=== PATIENT | female | born 1950 | race Caucasian/White ===

== ENCOUNTER 2017-01-11 07:19 | Emergency (ER) | payer SELFPAY ==
[2017-01-11] MEDS ORDERED: Sodium Chloride 0.9% 500 ML IV ONE (07:52)
[2017-01-11 07:56] VITALS: RESP 20; TEMP 97.9
[2017-01-11 08:06] LABS: BASO # 0.1 K/uL (0.0-0.2); BASO % 0.6 % (0.0-2.0); EOS # 0.2 K/uL (0.0-0.7); EOS % 1.3 % (0.0-4.0); HEMATOCRIT 39.1 % (34.0-47.0); LYMPH # 6.4 K/uL (1.0-4.3); LYMPH % 51.2 % (20.0-40.0); MEAN CELL VOLUME 84.6 fL (81.0-99.0); MEAN CORPUSCULAR HEMOGLOBIN 28.4 pg (27.0-31.0); MEAN CORPUSCULAR HGB CONC 33.5 g/dL (33.0-37.0); MEAN PLATELET VOLUME 9.9 fL (7.2-11.7); MONO % 7.7 % (0.0-10.0); RED CELL DISTRIBUTION WIDTH 12.9 % (11.5-14.5); WHITE BLOOD COUNT 12.5 K/uL (4.8-10.8)
[2017-01-11 08:12] LABS: CHLORIDE 95 mmol/L (98-107); POTASSIUM 4.2 mmol/L (3.6-5.2); SODIUM 137 mmol/L (132-148)
[2017-01-11 08:14] LABS: GFR AFRICAN-AMERICAN > 60
[2017-01-11 08:15] LABS: ALB/GLOB RATIO 1.3 (1.0-2.1); ALKALINE PHOSPHATASE 56 U/L (38-126); ALT/SGPT 21 U/L (9-52); AST/SGOT 21 U/L (14-36); BILIRUBIN,TOTAL 0.6 mg/dL (0.2-1.3); BLOOD UREA NITROGEN 20 mg/dL (7-17); CALCIUM 9.8 mg/dl (8.6-10.4); CARBON DIOXIDE 30 mmol/L (22-30); GLUCOSE,RANDOM 170 mg/dL (65-105); TOTAL PROTEIN 7.2 g/dL (6.3-8.3)
--- NOTE | 2017-01-11 08:15 | C.PDOC ---
History Of Present Illness 66-year-old female, presents to the emergency department, accompanied by daughter, complaining of diffuse cramps that started this morning- specifically right foot, right shoulder and left thigh. Patient has a Hx of muscle cramps, that vary in intensity. States cramps have improved at this time. Pt uses Gabapentin and Topical treatment with relief but this morning it did not help. Of note last night, patient reports BS was in 400s, she took additional insulin , today in 100s. No chest pain, fevers, shortness of breath, nausea/vomiting, trauma, or any other associated symptoms. No other complaints at this time. Time Seen by Provider: 01/11/17 07:33 Chief Complaint (Nursing): Lower Extremity Problem/Injury History Per: Patient, Family (daughter) History/Exam Limitations: no limitations Onset/Duration Of Symptoms: Days Current Symptoms Are (Timing): Better Severity: Moderate Past Medical History Reviewed: Historical Data, Nursing Documentation, Vital Signs Vital Signs: Last Vital Signs Temp 97.9 F 01/11/17 10:01 Pulse 77 01/11/17 10:01 Resp 20 01/11/17 10:01 BP 137/67 01/11/17 10:01 Pulse Ox 99 01/11/17 10:12 - Medical History PMH: HTN Family History: States: No Known Family Hx - Social History Hx Alcohol Use: No Hx Substance Use: No - Immunization History Hx Tetanus Toxoid Vaccination: No Hx Influenza Vaccination: No Review Of Systems Except As Marked, All Systems Reviewed And Found Negative. Constitutional: Positive for: Other (MUscle cramps.). Negative for: Fever, Chills Cardiovascular: Negative for: Chest Pain, Palpitations Gastrointestinal: Negative for: Nausea, Vomiting Neurological: Negative for: Weakness, Numbness, Headache, Dizziness Physical Exam - Physical Exam Appears: Non-toxic, No Acute Distress Skin: Warm, Dry, No Rash Head: Atraumatic, Normacephalic Eye(s): bilateral: Normal Inspection, EOMI Nose: Normal Oral Mucosa: Moist Lips: Normal Appearing Neck: Normal ROM, Supple Chest: Symmetrical Cardiovascular: Rhythm Regular, No Murmur Respiratory: Normal Breath Sounds, No Accessory Muscle Use Gastrointestinal/Abdominal: Soft, No Tenderness Extremity: Normal ROM, Tenderness, No Pedal Edema, No Calf Tenderness, Capillary Refill (< 2 sec), No Deformity, No Swelling, Other (Diffuse tenderness to lower extremities and right shoulder; no signs on decreased warmth or change in skin color) Extremity: Bilateral: Atraumatic, Normal Color And Temperature Pulses: Left Dorsalis Pedis: Normal, Right Dorsalis Pedis: Normal Neurological/Psych: Oriented x3, Normal Speech, Normal Sensation Gait: With Assistance ED Course And Treatment - Laboratory Results Result Diagrams: 01/11/17 08:01 01/11/17 08:01 ECG: Interpreted By Me (Dr Palafox), Viewed By Me ECG Rhythm: Sinus Rhythm Rate From EC O2 Sat by Pulse Oximetry: 99 - Radiology CXR: Interpreted by Me, Viewed By Me CXR Interpretation: Yes: No Acute Disease Progress Note: 07:52-. EKG, Bloodwork, Chest X-Ray and UA ordered and reviewed. Patient treated with Toradol and IVFs. Pt had one episode of leg cramps in ER, lasting about 2 minutes. valium ordered. . On re-evaluation patient is resting comfortably, and is in no acute distress. Imaging and blood work found to be negative; though all pathology has not been ruled out therefore admission was offered. Daughter and pt refuse admission noting this is pts baseleine and symptoms have improved. Pt has had leg cramps for many years with similar episode approx 8 yrs ago when she was [place] [facility] [place]. Patient was instructed to follow up with physician/clinic tomorrow for further evaluation and possible nerve/vascular studies. All questions were answered. Patient and daughter agreeable with plan. Case discussed with Dr Palafox, agreed upon plan and treatment. Disposition - Disposition Referrals: Kushal Patten MD [Medical Doctor] - Disposition: HOME/ ROUTINE Disposition Time: 10:08 Condition: STABLE Additional Instructions: Follow up with your doctor tomorrow. Return to ER if symptoms persist or worsen. Prescriptions: Metaxalone [Skelaxin] 800 mg PO BID #14 tablet Instructions: Muscle Strain (ED) - Clinical Impression Clinical Impression: Muscle cramps - Scribe Statement Johann Lamb All medical record entries made by the Scribe were at my direction and personally dictated by me. I have reviewed the chart and agree that the record accurately reflects my personal performance of the history, physical exam, medical decision making, and the department course for this patient. I have also personally directed, reviewed, and agree with the discharge instructions and disposition.
--- NOTE | 2017-01-11 09:29 | CT ---
PROCEDURE: CT HEAD WITHOUT CONTRAST. HISTORY: R/O Bleed COMPARISON: None available. TECHNIQUE: Axial computed tomography images were obtained through the head/brain without intravenous contrast. Radiation dose: Total exam DLP = 671.74 mGy-cm. This CT exam was performed using one or more of the following dose reduction techniques: Automated exposure control, adjustment of the mA and/or kV according to patient size, and/or use of iterative reconstruction technique. FINDINGS: HEMORRHAGE: No intracranial hemorrhage. BRAIN: Small chronic infarct right thalamus. Mild chronic periventricular white matter ischemic changes. Vascular calcifications Mild generalized volume loss. VENTRICLES: No obstructive hydrocephalus. . CALVARIUM: Calvarium is intact. . PARANASAL SINUSES: Minor mucosal thickening within a few ethmoid air cells and sphenoid sinus prominent left lilian bullosa MASTOID AIR CELLS: Unremarkable as visualized. No inflammatory changes. OTHER FINDINGS: Hyperdense right globe with peripheral calcifications. Findings probably represent a phthisis bulbi however ophthalmologic examination suggested. . Status post left cataract surgery. IMPRESSION: No acute intracranial hemorrhage. Small chronic infarct right thalamus. Minor chronic periventricular white matter ischemic changes. . Note that small hyperacute infarct may not be visualized on CT imaging. Clinic correlation recommended. Phthisis bulbi right globe. . Ophthalmologic examination recommended.
[2017-01-11 10:01] VITALS: BP 137/67; PULSE 77
[2017-01-11 10:11] VITALS: O2SAT 99
--- NOTE | 2017-01-11 15:03 | RAD ---
PROCEDURE: CHEST RADIOGRAPH, 1 VIEW HISTORY: SOB COMPARISON: None available. FINDINGS: LUNGS: Poor inspiration with low lung volumes and mild crowded bronchovascular markings right greater than left likely in part due to elevation of the right hemidiaphragm which could be secondary eventration. PLEURA: No pneumothorax or pleural fluid seen. CARDIOVASCULAR: Normal. OSSEOUS STRUCTURES: No significant abnormalities. VISUALIZED UPPER ABDOMEN: Normal. OTHER FINDINGS: None. IMPRESSION: Poor inspiration with low lung volumes and mild crowded bronchovascular markings right greater than left likely in part due to elevation of the right hemidiaphragm which could be secondary eventration.
--- NOTE | 2017-01-12 13:15 | CARD ---
APPROVED REPORT EKG Measurement Heart [id number] <Conclusion> Normal sinus rhythm Nonspecific T wave abnormality Abnormal ECG
== END 2017-01-11 10:48 | disposition home or self-care (01) ==
LOC: C.ER 07:19
DX: R25.2 Cramp and spasm (principal); I10 Essential (primary) hypertension
CPT/HCPCS: 70450; 71010; 80053; 82550; 82553; 82948; 84484; 85025; 93005; 96361; 96374; 99285; J1885; J7040

== ENCOUNTER 2017-05-08 11:19 | Emergency (ER) | payer OTHER ==
[2017-05-08 11:26] VITALS: BP 122/71; PULSE 59; RESP 18; TEMP 97.8; O2SAT 99
[2017-05-08] MEDS ORDERED: Bacitracin 500 Units/gm Oint Foilpak UD ONE (12:03)
--- NOTE | 2017-05-08 12:09 | C.PDOC ---
History Of Present Illness 66 yr old female presents to the ER for evaluation of painful blister to the right foot for the past few days. Patient reports prior to the onset of above symptoms she had severe itchiness over the sole of Right foot for 2 weeks. Otherwise, Patient denies known trauma or injury, fever, chills, foot swelling, deformity, weakness, sensory or vascular deficits to Right foot. Ambulate to Ed for evaluation, not in any apparent distress. Time Seen by Provider: 05/08/17 11:41 Chief Complaint (Nursing): Lower Extremity Problem/Injury History Per: Patient History/Exam Limitations: no limitations Onset/Duration Of Symptoms: Days Current Symptoms Are (Timing): Still Present Recent travel outside of the [place]: No Past Medical History Reviewed: Historical Data, Nursing Documentation, Vital Signs Vital Signs: Last Vital Signs Temp 97.8 F 05/08/17 11:26 Pulse 59 L 05/08/17 11:26 Resp 18 05/08/17 11:26 BP 122/71 05/08/17 11:26 Pulse Ox 99 05/08/17 12:53 - Medical History PMH: HTN Family History: States: No Known Family Hx - Social History Hx Alcohol Use: No Hx Substance Use: No - Immunization History Hx Tetanus Toxoid Vaccination: No Hx Influenza Vaccination: No Hx Pneumococcal Vaccination: No Review Of Systems Except As Marked, All Systems Reviewed And Found Negative. Constitutional: Negative for: Fever Musculoskeletal: Positive for: Other ((+) Painful blister to the right foot). Negative for: Leg Pain Neurological: Negative for: Weakness, Numbness Physical Exam - Physical Exam Appears: Well (Right foot: (+) blister 3cm diameter over 1st MTPJ with clar fluid. No edema, no eyrthema, no cellulitis.), Non-toxic, No Acute Distress Skin: Normal Color, Warm Extremity: Normal ROM (Right foot), Tenderness, No Calf Tenderness, No Deformity , No Swelling Neurological/Psych: Oriented x3, Normal Speech, Normal Motor, Normal Sensation, Normal Reflexes ED Course And Treatment O2 Sat by Pulse Oximetry: 99 (RA) Pulse Ox Interpretation: Normal Progress Note: On re-evaluation, pt is afebrile, hemodynamicaly stable. NOn- toxic. Ambulatory in ED with stable gait. Right foot: blister was aspirated with needle gauge#18, clear yellow discharge, no edema, no erythema, no flactulance, no proximal streaking. FAROM, no neurovascular deficits, no deformity. WOund was cleaned with bethadine, abx cream topically, non-stick dressing and cast shoe applied. Pt advised on wound care. ref. to f/u with PMD , Podiatry in 2-3 days for re-evaluation. Return to ED if any worsening or new changes. Disposition Counseled Patient/Family Regarding: Diagnosis, Need For Followup, Rx Given - Disposition Referrals: Kushal Patten MD [Medical Doctor] - Podiatry Clinic [Outside] Disposition: HOME/ ROUTINE Disposition Time: 12:02 Condition: STABLE Additional Instructions: CLEAN FOOT WITH PEROXIDE DAILY APPLY ANTIBACTERIAL CREAM TOPICALLY OPEN SHOE FOR 1 WEEK FOLLOW UP WITH PMD IN 2-3 DAYS FOR RE-EVALUATION. RETURN TO ED IF ANY WORSENING OR NEW CHANGES. Prescriptions: Mupirocin 2% Ointment [Bactroban Ointment] 1 appl TP DAILY #1 tube Instructions: Blister (ED) Forms: [employer] (Mauritian) - Clinical Impression Clinical Impression: Blister of foot - PA / MAINTENANCE CRAFTSMAN / Resident Statement MD/DO has reviewed & agrees with the documentation as recorded. - Scribe Statement The provider has reviewed the documentation as recorded by the Scribe Olimpia Velásquez All medical record entries made by the Lizbetiban were at my direction and personally dictated by me. I have reviewed the chart and agree that the record accurately reflects my personal performance of the history, physical exam, medical decision making, and the department course for this patient. I have also personally directed, reviewed, and agree with the discharge instructions and disposition.
== END 2017-05-08 12:49 | disposition home or self-care (01) ==
LOC: C.ER 11:19
DX: S90.821A Blister (nonthermal), right foot, initial encounter (principal); X58.XXXA Exposure to other specified factors, initial encounter

== ENCOUNTER 2017-07-20 07:31 | Emergency (ER) | payer OTHER ==
--- NOTE | 2017-07-20 07:51 | C.PDOC ---
- HPI Time Seen by Provider: 07/20/17 07:34 Chief Complaint (Nursing): Trauma Past Medical History - Medical History PMH: HTN - Social History Hx Alcohol Use: No Hx Substance Use: No - Immunization History Hx Tetanus Toxoid Vaccination: No Hx Influenza Vaccination: No Hx Pneumococcal Vaccination: No Disposition - Disposition
[2017-07-20 07:54] VITALS: TEMP 97.4
--- NOTE | 2017-07-20 08:07 | C.PDOC ---
History Of Present Illness 66 year old female with a history of chronic bilateral leg pain was brought to the ED by family status post fall at 0600. Patient complains of new onset headache, nausea, and questionable head injury. Family states patient fell while trying to get out of bed. Family denies history of frequent falls or gait assist devices. Patient needed help getting up and complains of pain with weight bearing. Family states "she always has leg pain." Patient denies LOC, other injury, or any other associated symptoms. HX PER FAMILY, PT SP FALL AT 0600. FAMILY STATES PT FELL TRYING TO GET OUT OF BED. DENIES HO FREQ FALLS OR GAIT ASSIST DEVICE. NEEDED HELP GETTING UP BUT CO PAIN W WT BEAR. HO CHRONIC B/L LEG PAIN "SHE ALWAYS HAS LEG PAIN". CO NEW ONSET MURRIETA, NAUSEA. ?HEAD INJURY. NO LOC. DENIES OTHER ASSOC SX OR INJURY EXAM NAD NONTOXIC HEENT ATRAUM NECK SUPPLE LUNGS NARD ABD NEG EXT AROM WO DIFF NO DEFORM/MALROTATION. NO FOCAL TEND. ATRAUM SKIN INTACT NEURO NO FOCAL DEF REMIANDE RNEG - HPI Time Seen by Provider: 07/20/17 07:34 History Per: Patient, Family History/Exam Limitations: no limitations Onset/Duration Of Symptoms: Hrs Injury Occurred (Timing): Today @ (0600) Recent travel outside of the [place]: No - Fall Fall:Prior To Injury: Other (fell trying to get out of bed) Past Medical History Reviewed: Historical Data, Nursing Documentation, Vital Signs Vital Signs: Last Vital Signs Temp 97.4 F L 07/20/17 07:42 Pulse 73 07/20/17 09:35 Resp 18 07/20/17 09:35 BP 110/56 L 07/20/17 09:35 Pulse Ox 99 07/20/17 09:35 - Medical History PMH: HTN Family History: States: Unknown Family Hx - Social History Hx Alcohol Use: No Hx Substance Use: No - Immunization History Hx Tetanus Toxoid Vaccination: No Hx Influenza Vaccination: No Hx Pneumococcal Vaccination: No Review Of Systems Constitutional: Negative for: Fever, Chills Cardiovascular: Negative for: Chest Pain, Palpitations Respiratory: Negative for: Cough, Shortness of Breath Gastrointestinal: Positive for: Nausea. Negative for: Vomiting Neurological: Positive for: Headache. Negative for: Weakness, Numbness, Dizziness Physical Exam - Physical Exam Appears: Non-toxic, No Acute Distress Skin: Warm, Dry, No Rash, No Ecchymosis, Other (skin intact) Head: Atraumatic, No Swelling, No Abrasion, No Laceration Eye(s): bilateral: PERRL, EOMI Oral Mucosa: Moist Neck: Supple Chest: Symmetrical, No Deformity Cardiovascular: Rhythm Regular, No Murmur Respiratory: Other (no acute respiratory disease) Gastrointestinal/Abdominal: Soft, No Tenderness, No Distention, No Guarding, No Rebound Extremity: No Tenderness (no focal tenderness), No Deformity (no malrotation ), Other (active ROM without difficulty. Atraumatic ) Neurological/Psych: Oriented x3, Other (no focal deficits ) ED Course And Treatment - Laboratory Results Result Diagrams: 07/20/17 08:30 07/20/17 08:30 ECG: Interpreted By Me ECG Rhythm: Sinus Rhythm ECG Interpretation: Normal Rate From EC O2 Sat by Pulse Oximetry: 100 (RA) Pulse Ox Interpretation: Normal - Radiology CXR: Interpreted by Me, Viewed By Me CXR Interpretation: Yes: Other (negative, unchanged from 01/2017) - Other Rad Pelvis X-Ray X-Ray: Interpreted by Me, Viewed By Me Interpretation: Negative - CT Scan/US Head CT Other Rad Studies (CT/US): Read By Radiologist, Radiology Report Reviewed CT/US Interpretation: FINDINGS: HEMORRHAGE: No intracranial hemorrhage. BRAIN : Vazquez-white matter differentiation is preserved. There is no mass, mass effect or abnormal extra-axial fluid collection. There is an old lacunar infarction in the right thalamus. There is stable mild calcification in the left basal ganglia. VENTRICLES: There is mild age-related global parenchymal volume loss and proportionate enlargement of the ventricles and cortical sulci appear. CALVARIUM: Unremarkable. PARANASAL SINUSES: There is fluid and aerosolized secretions in the sphenoid sinus. The remaining included paranasal sinuses are clear. MASTOID AIR CELLS: Unremarkable as visualized. No inflammatory changes. OTHER FINDINGS: None. IMPRESSION: No acute intracranial abnormality. Old lacunar infarction in the right thalamus. Fluid with aerosolized secretions in the sphenoid sinus may represent acute sinusitis in the appropriate clinical setting. Progress Note: Head CT, EKG, CXR, labs, and blood work were ordered. Patient was given Tylenol, Reglan, and IV fluids. Progress - Re-Evaluation Re-evaluation Note: 07/20/17 09:52 APPEARS COMFORTABLE NEURO INTACT VSS. - Data Reviewed Data Reviewed: Lab, Diagnostic imaging, EKG, Old records Disposition Counseled Patient/Family Regarding: Studies Performed, Diagnosis, Need For Followup - Disposition Referrals: YOUR,PMD [Other] Disposition: HOME/ ROUTINE Disposition Time: 09:55 Condition: IMPROVED Instructions: Contusion in Adults (ED) Forms: [employer] (Armenian) - Clinical Impression Clinical Impression: Contusion - Scribe Statement The provider has reviewed the documentation as recorded by the Scribe Sonia Delacruz All medical record entries made by the Lizbetibe were at my direction and personally dictated by me. I have reviewed the chart and agree that the record accurately reflects my personal performance of the history, physical exam, medical decision making, and the department course for this patient. I have also personally directed, reviewed, and agree with the discharge instructions and disposition.
[2017-07-20] MEDS ORDERED: Sodium Chloride 0.9% 1,000 ML IV SCH (08:30)
[2017-07-20 08:33] LABS: BASO # 0.1 K/uL (0.0-0.2); BASO % 0.5 % (0.0-2.0); EOS # 0.2 K/uL (0.0-0.7); EOS % 1.3 % (0.0-4.0); HEMATOCRIT 41.4 % (34.0-47.0); LYMPH # 3.5 K/uL (1.0-4.3); LYMPH % 25.8 % (20.0-40.0); MEAN CELL VOLUME 87.3 fL (81.0-99.0); MEAN CORPUSCULAR HEMOGLOBIN 29.9 pg (27.0-31.0); MEAN CORPUSCULAR HGB CONC 34.3 g/dL (33.0-37.0); MONO # 1.3 K/uL (0.0-0.8); MONO % 9.5 % (0.0-10.0); RED CELL DISTRIBUTION WIDTH 13.2 % (11.5-14.5); WHITE BLOOD COUNT 13.6 K/uL (4.8-10.8)
[2017-07-20] MEDS ORDERED: Sodium Chloride 0.9% 1,000 ML ONE (08:33)
[2017-07-20 08:53] LABS: BLOOD UREA NITROGEN 17 mg/dL (7-17); CALCIUM 9.1 mg/dl (8.6-10.4); CARBON DIOXIDE 29 mmol/L (22-30); CHLORIDE 100 mmol/L (98-107); GFR AFRICAN-AMERICAN 55; GLUCOSE,RANDOM 150 mg/dL (65-105); SODIUM 135 mmol/L (132-148)
--- NOTE | 2017-07-20 09:02 | RAD ---
PROCEDURE: CHEST RADIOGRAPH, 1 VIEW HISTORY: SOB COMPARISON: 01/11/2017. FINDINGS: LUNGS: The lungs are clear. There is a stable calcified granuloma in the right lateral mid lung. PLEURA: No pneumothorax or pleural fluid seen. CARDIOVASCULAR: Normal. OSSEOUS STRUCTURES: No significant abnormalities. VISUALIZED UPPER ABDOMEN: Normal. OTHER FINDINGS: None. IMPRESSION: No active pulmonary disease.
--- NOTE | 2017-07-20 09:13 | CT ---
PROCEDURE: CT HEAD WITHOUT CONTRAST. HISTORY: Headache? Trauma COMPARISON: 01/11/2017. TECHNIQUE: Axial computed tomography images were obtained through the head/brain without intravenous contrast. Radiation dose: Total exam DLP = 671.74 mGy-cm. This CT exam was performed using one or more of the following dose reduction techniques: Automated exposure control, adjustment of the mA and/or kV according to patient size, and/or use of iterative reconstruction technique. FINDINGS: HEMORRHAGE: No intracranial hemorrhage. BRAIN: Vazquez-white matter differentiation is preserved. There is no mass, mass effect or abnormal extra-axial fluid collection. There is an old lacunar infarction in the right thalamus. There is stable mild calcification in the left basal ganglia. VENTRICLES: There is mild age-related global parenchymal volume loss and proportionate enlargement of the ventricles and cortical sulci appear. CALVARIUM: Unremarkable. PARANASAL SINUSES: There is fluid and aerosolized secretions in the sphenoid sinus. The remaining included paranasal sinuses are clear. MASTOID AIR CELLS: Unremarkable as visualized. No inflammatory changes. OTHER FINDINGS: None. IMPRESSION: No acute intracranial abnormality. Old lacunar infarction in the right thalamus. Fluid with aerosolized secretions in the sphenoid sinus may represent acute sinusitis in the appropriate clinical setting.
--- NOTE | 2017-07-20 09:49 | RAD ---
PROCEDURE: Radiographs of the pelvis. HISTORY: Pain COMPARISON: None. FINDINGS: BONES: The pelvic ring is intact. There is no acute displaced fracture or bone destruction. JOINTS: There is mild degenerative osteoarthrosis in the hip joints. The sacroiliac joints are normal. OTHER FINDINGS: None. IMPRESSION: No acute fracture, dislocation or bone destruction. 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
[2017-07-20 10:15] VITALS: BP 119/61; PULSE 81; RESP 16; O2SAT 99
--- NOTE | 2017-07-20 19:13 | CARD ---
APPROVED REPORT EKG Measurement Heart [id number] [place] [id number] [id number] <Conclusion> Normal sinus rhythm Normal ECG
== END 2017-07-20 10:33 | disposition home or self-care (01) ==
LOC: C.ER 07:31
DX: S40.022A Contusion of left upper arm, initial encounter (principal); W06.XXXA Fall from bed, initial encounter; Y92.003 Bedroom of unspecified non-institutional (private) residence as the place of occurrence of the external cause; I10 Essential (primary) hypertension
CPT/HCPCS: 70450; 71010; 72170; 80048; 82948; 84484; 85025; 93005; 99285; J2765; J7040

== ENCOUNTER 2018-04-20 08:35 | Emergency (ER) | payer MEDICARE, OTHER ==
[2018-04-20 08:51] VITALS: RESP 18
--- NOTE | 2018-04-20 09:17 | C.PDOC ---
History Of Present Illness 67 y/o female, w/PMhx of IDDM, presents to the ER for evaluation of bruise developed over left abdominal wall after she injected insulin 3 days ago. Pt states that the the bruise is slowly improving but she still wanted to have the bruise checked. Denies fever, chills, abdominal pain, nausea, vomiting, any open wound or discharge. Ambulate to Ed for evaluation, not in any apparent distress.. Time Seen by Provider: 04/20/18 08:40 Chief Complaint (Nursing): Abnormal Skin Integrity History Per: Patient History/Exam Limitations: no limitations Onset/Duration Of Symptoms: Days Current Symptoms Are (Timing): Still Present Severity: Moderate Past Medical History Reviewed: Historical Data, Nursing Documentation, Vital Signs Vital Signs: Last Vital Signs Temp 98.1 F 04/20/18 09:47 Pulse 71 04/20/18 09:47 Resp 18 04/20/18 09:47 BP 116/70 04/20/18 09:47 Pulse Ox 100 04/20/18 11:43 - Medical History PMH: HTN Family History: States: Unknown Family Hx - Social History Hx Alcohol Use: No Hx Substance Use: No - Immunization History Hx Tetanus Toxoid Vaccination: No Hx Influenza Vaccination: No Hx Pneumococcal Vaccination: No Review Of Systems Except As Marked, All Systems Reviewed And Found Negative. Constitutional: Negative for: Fever, Chills Gastrointestinal: Negative for: Nausea, Vomiting, Abdominal Pain Skin: Positive for: Bruising (abdominal wall) Physical Exam - Physical Exam Appears: Well, Non-toxic, No Acute Distress Skin: Normal Color, Warm, Dry, Ecchymosis (localized superficial ecchymosis to left upper abdominal wall with small central 1 cm induration, NO proximal streaking, no flactulance.) Head: Normacephalic Eye(s): bilateral: PERRL Nose: No Flaring, No Discharge Oral Mucosa: Moist, No Drooling Throat: No Drooling Neck: Trachea Midline, Supple Chest: Symmetrical Cardiovascular: Rhythm Regular, No Murmur, No JVD Respiratory: No Decreased Breath Sounds, No Accessory Muscle Use, No Rales, No Rhonchi, No Stridor, No Wheezing Gastrointestinal/Abdominal: Soft, No Tenderness, No Distention, No Guarding, No Rebound Back: No CVA Tenderness Extremity: Normal ROM, No Deformity, No Swelling Neurological/Psych: Oriented x3, Normal Speech ED Course And Treatment O2 Sat by Pulse Oximetry: 100 (RA) Pulse Ox Interpretation: Normal Progress Note: FSBS 111. On re-eval, pt is afebrile, hemodynamicaly stable. Non-toxic. Abd: benign, (-) guarding, (-) rebound, (-) localized tenderness. back: (-) CVA tenderness. SKin: localized superifial ecchymsoes with small central hematoma over LUQ abd. pain. No cellulitis, no flactulance. Pt advised on course of ds. ref. to f/u with PMD in 1-2 days for re-eavl as need. return to ED if any worsening or new changes. Disposition Counseled Patient/Family Regarding: Diagnosis, Need For Followup - Disposition Referrals: Kushal Patten MD [Medical Doctor] - Disposition: HOME/ ROUTINE Disposition Time: 09:14 Condition: STABLE Additional Instructions: Warm compresses to area Follow up with PMD in 1-2 days for re-evaluation. return to ED if any worsening or new changes. Instructions: Contusion (DC) Forms: [employer] (Burmese) - Clinical Impression Clinical Impression: Hematoma - PA / SALES SERVICE REPRESENTATIVE / Resident Statement MD/DO has reviewed & agrees with the documentation as recorded. - Scribe Statement The provider has reviewed the documentation as recorded by the Lizbetiban Ellington Provider Attestation All medical record entries made by the Scribe were at my direction and personally dictated by me. I have reviewed the chart and agree that the record accurately reflects my personal performance of the history, physical exam, medical decision making, and the department course for this patient. I have also personally directed, reviewed, and agree with the discharge instructions and disposition.
[2018-04-20 09:49] VITALS: BP 116/70; PULSE 71; TEMP 98.1
[2018-04-20 11:25] VITALS: O2SAT 100
== END 2018-04-20 09:49 | disposition home or self-care (01) ==
LOC: C.ER 08:35
DX: S30.1XXA Contusion of abdominal wall, initial encounter (principal); X58.XXXA Exposure to other specified factors, initial encounter